=== PATIENT | male | born 1990 | race Caucasian/White ===

== ENCOUNTER 2016-09-14 14:22 | Emergency (ER) | payer MEDICAID ==
[~2016-09-14] VITALS: Ht 167.6 cm; Wt 63.1 kg
[2016-09-14 14:25] VITALS: Ht 167.6 cm; Wt 63.1 kg
[2016-09-14] MEDS ORDERED: LORAZEPAM 2 MG INJ IV ONE (15:00)
[2016-09-14] MEDS ORDERED: LORAZEPAM 2 MG INJ IM ONE (15:00)
[2016-09-14] MEDS ORDERED: SOD CHLORIDE 0.9% 1,000 ML IV ONE ×2 (15:00→16:30)
[2016-09-14 15:24] LABS: ADD SCAN DIFF NO
[2016-09-14 15:28] LABS: BASOPHIL # 0.1 10^3/ul (0.0-0.1); BASOPHILS % 0.4 % (0.0-2.0); HEMATOCRIT 47.7 % (42.0-52.0); HEMOGLOBIN 16.8 g/dl (14.0-18.0); LYMPHOCYTES % 7.5 % (15.0-51.0); MEAN CORPUSCULAR HEMOGLOBIN 30.5 pg (29.0-33.0); MEAN CORPUSCULAR HGB CONC 35.2 g/dl (32.0-37.0); MEAN CORPUSCULAR VOLUME 86.7 fl (82.0-101.0); MONOCYTE # 0.5 10^3/ul (0.3-0.9); MONOCYTES % 3.6 % (0.0-11.0); NEUTROPHIL # 12.1 10^3/ul (1.6-7.5); NEUTROPHILS % 88.2 % (39.0-77.0); PLATELET COUNT 296 10^3/UL (140-415); RED CELL DISTRIBUTION WIDTH 11.9 % (11.5-14.5); WHITE BLOOD COUNT 13.7 10^3/ul (4.8-10.8)
[2016-09-14 15:52] LABS: CHLORIDE 101 mmol/L (97-110); POTASSIUM 3.6 mmol/L (3.5-5.1); SODIUM 143 mmol/L (135-144)
[2016-09-14 15:55] LABS: ANION GAP 22 (8-16); BLOOD UREA NITROGEN 13 mg/dl (7-20); CALCIUM 10.1 mg/dl (8.4-10.2); CARBON DIOXIDE 24 mmol/L (21-31); CREATININE 0.98 mg/dl (0.61-1.24); GLUCOSE 91 mg/dl (70-220)
--- NOTE | 2016-09-14 16:05 | ERD ---
ER Documentation Chief Complaint Date/Time DATE: 09/14/16 TIME: 16:03 Chief Complaint PER R100, SENT BY PD AFTER FOUND SPOKING MARIJUANA IN [place] HPI 26-year-old man brought in by EMS for public intoxication including marijuana methamphetamine abuse. Patient states he fell agitated after using those drugs. He denies suicidal homicidal ideation, no fevers or chills, no chest pain or shortness of breath, no vomiting or diarrhea. Patient was transported here by EMS without further complications. ROS All systems reviewed and are negative except as per history of present illness. Medications Home Meds No Active Prescriptions or Reported Meds Allergies Allergies: Coded Allergies: No Known Allergy (Unverified , 09/14/16) PMhx/Soc Drug abuse Medical and Surgical Hx: pt denies Medical Hx, pt denies Surgical Hx History of Surgery: No Anesthesia Reaction: No Hx Neurological Disorder: No Hx Respiratory Disorders: No Hx Cardiac Disorders: No Hx Psychiatric Problems: No Hx Miscellaneous Medical Probl: No Hx Alcohol Use: No Hx Substance Use: Yes Hx Tobacco Use: No Smoking Status: Unknown if ever smoked FmHx Family History: No diabetes Physical Exam Vitals Vital Signs Date Time Temp Pulse Resp B/P Pulse Ox O2 Delivery O2 Flow Rate FiO2 09/14/16 14:25 99.5 98 20 108/87 98 Physical Exam GENERAL: Well-developed, well-nourished, appears intoxicated, afebrile HEENT: Dry mucous membranes, pink conjunctiva, no cervical spine tenderness or step-off deformities, no goiter, no jaundice or icterus, extraocular movements intact without pain. No submandibular induration, and no pharyngeal erythema NEURO: Alert and oriented 3, cranial nerves II through XII intact bilaterally, pupils equal round reactive to light, no focal deficits or facial asymmetry, sensation intact distally Strength 5/5 in upper and lower extremities bilaterally CARDIAC: Tachycardic and regular, no murmurs rubs or gallops LUNGS: Clear bilaterally no wheezing crackles or stridor ABDOMEN: Soft nontender, no guarding, no rigidity, no rebound, no psoas sign no obturator sign. Normoactive bowel sounds SKIN: Warm and dry to touch, no abrasions, contusions, or hematomas, no lacerations, no ecchymosis, no target lesions, and without ulcers EXTREMITIES: No clubbing cyanosis or edema, calves are bilaterally symmetrical, no Homans sign, no popliteal cord sign. Distal pulses equal and bilateral PSYCH: Anxious Result Diagram: 09/14/16 1512 09/14/16 1512 Results 24 hrs Laboratory Tests Test 09/14/16 15:12 White Blood Count 13.710^3/ul Red Blood Count 5.5010^6/ul Hemoglobin 16.8g/dl Hematocrit 47.7% Mean Corpuscular Volume 86.7fl Mean Corpuscular Hemoglobin 30.5pg Mean Corpuscular Hemoglobin Concent 35.2g/dl Red Cell Distribution Width 11.9% Platelet Count 63548^3/UL Mean Platelet Volume 10.0fl Neutrophils % 88.2% Lymphocytes % 7.5% Monocytes % 3.6% Eosinophils % 0.0% Basophils % 0.4% Nucleated Red Blood Cells % 0.0/100WBC Neutrophils # 12.110^3/ul Lymphocytes # 1.010^3/ul Monocytes # 0.510^3/ul Eosinophils # 0.010^3/ul Basophils # 0.110^3/ul Nucleated Red Blood Cells # 0.010^3/ul Sodium Level 143mmol/L Potassium Level 3.6mmol/L Chloride Level 101mmol/L Carbon Dioxide Level 24mmol/L Anion Gap 22 Blood Urea Nitrogen 13mg/dl Creatinine 0.98mg/dl Glucose Level 91mg/dl Calcium Level 10.1mg/dl Troponin I < 0.012ng/ml Current Medications Medications (Trade) Dose Ordered Sig/Silvia Route PRN Reason Start Time Stop Time Status Last Admin Dose Admin Lorazepam (Ativan) 1 mg ONCE ONCE IM 09/14/16 15:00 09/14/16 15:00 DC Lorazepam 1 mg 1 mg ONCE ONCE IV 09/14/16 15:00 09/14/16 15:01 DC 09/14/16 15:00 Sodium Chloride 1,000 ml @ 1,000 mls/hr Q1H ONCE IV 09/14/16 15:00 09/14/16 15:59 DC 09/14/16 15:00 Sodium Chloride (NS) 1,000 ml @ 1,000 mls/hr Q1H ONCE IV 09/14/16 16:30 09/14/16 17:29 09/14/16 16:58 Procedures/MDM IV line was established patient was placed on monitor technician rhythm strip revealed a sinus tachycardia at 100 bpm with upright P and T waves. Patient was afebrile. EKG performed, read by me: 95 bpm, normal sinus rhythm, normal axis, no acute ST segment changes, narrow QRS complex, with good R-wave progression in precordial leads. I administered 2 L normal saline intravenously for dehydration and tachycardia as well as lorazepam 2 mg IV with good effect. CBC and electrolytes were normal, troponin was negative. Observation Note: Time: For hours Family Hx: No Hypertension Evaluation: Multiple exams showed improving symptoms and no evidence of decreasing mental status or abnormal vital signs. Differential diagnoses considered, included but not limited to acute coronary syndrome, pulmonary embolism, aortic dissection, abdominal aortic aneurysm, sepsis, stroke, meningitis, encephalitis, pneumonia, appendicitis, cholecystitis , bowel obstruction, pyelonephritis, nephrolithiasis, cystitis, as well as metabolic, hematologic, and electrolyte abnormalities. As well as abscess, cellulitis, fractures, and dislocations. Patient feels much better at this time, and vital signs are normal, symptoms have improved. I did give strict instructions to return to the ED if symptoms continue or worsen, patient will otherwise follow-up with primary care physician. Patient understood instructions and agreed to plan. Disclaimer: Inadvertent spelling or grammatical errors are likely due to EHR/ dictation software use and do not reflect on the overall quality of patient care. Departure Diagnosis: Primary Impression: Methamphetamine abuse Additional Impression: Dehydration Condition: Good Patient Instructions: Understanding Methamphetamine Abuse and Addiction JESI LOZOYA MD September 14, 2016 16:05
[2016-09-14 16:09] LABS: TROPONIN-I < 0.012 ng/ml (0.00-0.12)
[2016-09-14 18:35] VITALS: BP 100/63; PULSE 102; RESP 20; TEMP 98.8
== END 2016-09-14 18:55 | disposition home or self-care (01) ==
LOC: E/R 14:22
DX: F15.10 Other stimulant abuse, uncomplicated (principal); R40.2242 Coma scale, best verbal response, confused conversation, at arrival to emergency department; E86.0 Dehydration; R40.2142 Coma scale, eyes open, spontaneous, at arrival to emergency department; R40.2362 Coma scale, best motor response, obeys commands, at arrival to emergency department
CPT/HCPCS: 36415; 80048; 84484; 85025; 93005; 96374; J2060; J7030; Z7502